=== PATIENT | female | born 1955 | race Caucasian/White ===

== ENCOUNTER → 2017-02-22 | Outpatient (CLI) | payer OTHER ==
--- NOTE | 2017-02-22 13:20 | REP ---
MRI LUMBAR SPINE WITHOUT CONTRAST: HISTORY: Low back pain. Left leg pain and tingling. Question stenosis. TECHNIQUE: Sagittal and axial T1 and T2-weighted scans are acquired in the usual fashion with and without fat saturation. Sequences include spin echo, turbo spin-echo, and STIR imaging sequences. MRI FINDINGS: Lumbar vertebral body heights are preserved, and alignment is normal. Cortical and medullary bone signal intensity are normal. The cauda equina is normal in position and appearance at T12-L1. Axial and sagittal images at the L1-L2 disc level demonstrate diffuse disc bulging including a right lateral disc bulge. No central canal stenosis or significant neural foraminal narrowing is seen. At L2-L3, there is minimal diffuse disc bulging. This indents the ventral margin of the thecal sac. There is facet hypertrophy, left greater than right and mild ligamentum flavum hypertrophy, also more prominent on the left. There is mild left-sided neural foraminal narrowing. At L3-4, there is diffuse disc bulging. Canal size developmentally somewhat small with facet and moderate ligamentum flavum hypertrophy producing mild central canal stenosis at L3-L4. The mid sagittal AP dimension of the thecal sac at this level is 9 mm. No neural foraminal narrowing is appreciated. L4-5, there is a large left posterior disc extrusion extending caudally. This produces moderate compression of the thecal sac. There is ligamentum flavum and mild facet hypertrophy, and the canal is developmentally somewhat small at this level. Mild bilateral neural foraminal narrowing is seen. Mild central canal stenosis overall. At L5-S1, there is a central disc bulge effacing the ventral subarachnoid space slightly. Mild facet hypertrophy is noted. No central canal stenosis is seen. No neural foraminal encroachment. IMPRESSION: Degenerative spondylosis changes. Left posterior disc extrusion L4-5 with moderate thecal sac compression. Right lateral and right foraminal disc bulge at L1-L2. Signed by Clif Flaherty MD 02/22/2017 03:02 P
== END ==
LOC: M RAD 10:40
PROVIDERS: ATTEND Physician Assistant Surgical
DX: M54.5 Low back pain (principal)

== ENCOUNTER → 2018-04-25 | Outpatient (CLI) | payer OTHER ==
--- NOTE | 2018-04-30 09:36 | REP ---
ABDOMEN, SITZ MARKER STUDY: 04/30/2018. CLINICAL HISTORY: Constipation. Patient took the marker capsule around noon on 04/25/2018. FINDINGS: There is a single ring marker overlying the rectal vault just to the right of midline. There are no other findings. Scattered stool in the colon without abnormal dilatation. No abnormal calcifications over the renal fossae or expected course of the ureters. Minor degenerative changes in the lower lumbar spine and hips. IMPRESSION: 1. A single ring marker overlies the rectal vault, 5 days after the Sitz marker capsule was taken. No other finding. Electronically Signed by El Zambrano MD 04/30/2018 09:37 A
== END ==
LOC: M RAD 13:53
PROVIDERS: ATTEND Internal Medicine Gastroenterology
DX: K59.00 Constipation, unspecified (principal)

== ENCOUNTER → 2018-09-20 | Outpatient (REF) | payer OTHER ==
[2018-09-20 12:19] LABS: PLATELET COUNT, AUTOMATED 235 10^3/uL (150-450)
[2018-09-20 12:30] LABS: INR 0.91; PARTIAL THROMBOPLASTIN TIME 31.4 SECONDS (25.0-38.4)
[2018-09-20 12:41] LABS: ERYTHROCYTE SEDIMENTATION RATE 13 mm/hr (0-30)
== END ==
LOC: M LABDRAW1 11:59
PROVIDERS: ATTEND Physical Medicine & Rehabilitation
DX: Z79.01 Long term (current) use of anticoagulants (principal)